=== PATIENT | female | born 1955 | race Caucasian/White ===

== ENCOUNTER 2021-11-20 13:15 | Emergency (ER) | payer OTHER ==
[~2021-11-20] VITALS: Ht 149.9 cm; Wt 59.9 kg
== END 2021-11-20 14:29 | disposition home or self-care (01) ==
LOC: ER 13:15
DX: S61.211A Laceration without foreign body of left index finger without damage to nail, initial encounter (principal); W26.0XXA Contact with knife, initial encounter; Y93.9 Activity, unspecified; Y92.9 Unspecified place or not applicable; Y99.9 Unspecified external cause status